=== PATIENT | female | born 1960 | race African-American/Black ===

== ENCOUNTER 2023-04-22 22:55 | Inpatient (IN) | payer MEDICARE, MEDICAID ==
[2023-04-23 00:10] LABS: #Eosinphils 0.2 10x3/uL (0.0-0.5); #Monocytes 0.6 10x3/uL (0.0-1.1); #Neutrophils 4.4 10x3/uL (1.5-8.4); %Basophils 0.4 % (0.0-2.0); %Eosinophils 1.8 % (0.0-6.0); %Lymphocytes 35.6 % (18.0-47.0); %Monocytes 7.2 % (0.0-10.0); %Neutrophils 54.3 % (40.0-75.0); Hematocrit 31.1 % (34.9-44.5); Hemoglobin 9.3 g/dL (12.0-15.5); Mean Corpuscular HGB CONC 29.9 g/dL (32.0-36.0); Mean Corpuscular Hemoglobin 26.7 pg (27.0-33.0); Mean Corpuscular Volume 89.4 fl (81.6-98.3); Mean Platelet Volume 9.7 fl (7.4-10.4); Platelet Count 462 10x3/uL (150-450); RBC Distribution Width 18.9 % (11.5-14.5); Red Blood Cell (RBC) Count 3.48 10x6/uL (3.90-5.03); White Blood Cell (WBC) Count 8.1 10x3/uL (3.5-10.5)
[2023-04-23 00:30] LABS: ALT (SGPT) Less than 7 U/L (8-55); AST (SGOT) 11 U/L (5-34); Albumin 3.2 g/dL (3.5-5.0); Alkaline Phosphatase 56 U/L (40-110); Anion Gap 16 mmol/L (10-20); BUN (Urea Nitrogen) 72 mg/dL (9.8-20.1); Bilirubin, Total 0.3 mg/dL (0.2-1.2); Calc. Creatinine Clearance 0 mL/min (70-130); Calcium 8.2 mg/dL (7.8-10.44); Chloride 120 mmol/L (98-107); Estimated GFR 20; Globulin 3.6 g/dL (2.4-3.5); Glucose 99 mg/dL (70-105); Potassium 3.7 mmol/L (3.5-5.1); Protein, Total 6.8 g/dL (6.0-8.3); Sodium 140 mmol/L (136-145)
[2023-04-23 00:34] LABS: Carbon Dioxide 8 mmol/L (22-29)
[2023-04-23 01:01] LABS: Bilirubin Neg (Negative); Blood, Urine 25 (Negative); Clarity Cloudy (Clear); Glucose, Urine (Dipstick) Normal (Negative); Ketone, Urine Negative (Negative); Leukocyte 500 (Negative); Nitrite Positive (Negative); Protein, Urine (Dipstick) 30 mg/dl (Neg-Trace); Urobilinogen Normal mg/dL (Less than 2); pH, Urine 6.5 (5.0-9.0)
[2023-04-23 01:04] LABS: Actual Bicarbonate (HCO3v) 12.7 mEq/L (22-28); Base Excess -14.5 mEq/L (-2 - +2); Chloride (VBG) 119 mmol/L (98-106); Hematocrit-VBG 30 % (36.0-47.0); Hemoglobin (Hb) 10.1 g/dL (11.7-16.0); Potassium (VBG) 3.36 mmol/L (3.70-5.30); Puncture Site Other Site; RapidComm Collect By lab; Sodium 143 mmol/L (133-146); pH (venous) 7.187 (7.32-7.43)
[2023-04-23 01:10] LABS: Bacteria/HPF 2+ HPF (None Seen); CAUTI Indications for Culture Dysuria,urgency,freq; RBC/HPF 0-3 HPF (0-3); Squamous Epithelial 0-3 HPF (0-3); WBC/HPF Greater than 50 HPF (0-3)
[2023-04-23] MEDS ORDERED: cefTRIAXone (ROCEPHIN) 1 GM VIAL ONE (02:55)
[2023-04-23] MEDS ORDERED: Dextrose 5% in Water 1,000 ML IV PRN (03:24)
[2023-04-23] MEDS ORDERED: Glucagon 1 MG/ML KIT IM PRN (03:24)
[2023-04-23] MEDS ORDERED: Dextrose 50% Abboject 50 ML SYRINGE SLOW IVP PRN (03:24)
[2023-04-23] MEDS ORDERED: Acetaminophen 325 MG TAB PO PRN (03:24)
[2023-04-23] MEDS ORDERED: Melatonin 3 MG TAB PO PRN (03:24)
[2023-04-23] MEDS ORDERED: Sodium Chloride 0.9% 1,000 ML IV SCH (03:30)
[2023-04-23 07:35] LABS: Anion Gap 15 mmol/L (10-20); BUN (Urea Nitrogen) 69 mg/dL (9.8-20.1); Calc. Creatinine Clearance 24 mL/min (70-130); Calcium 8.1 mg/dL (7.8-10.44); Carbon Dioxide 10 mmol/L (22-29); Chloride 121 mmol/L (98-107); Estimated GFR 19; Glucose 126 mg/dL (70-105); Magnesium 1.3 mg/dL (1.6-2.6); Phosphorus 4.6 mg/dL (2.3-4.7); Potassium 3.4 mmol/L (3.5-5.1); Sodium 143 mmol/L (136-145)
[2023-04-23] MEDS: Aspirin 81 mg Enteric Coated Tablet PO SCH (08:52)
[2023-04-23] MEDS: Senokot S 8.6-50 MG TAB PO SCH ×2 (08:52→21:06)
[2023-04-23] MEDS: Metoprolol Tartrate 25 MG TAB PO SCH ×2 (08:52→21:07)
[2023-04-23] MEDS ORDERED: Sodium Chloride 0.45% 1,000 ML IV SCH (09:00)
[2023-04-23] MEDS: Sodium Bicarbonate 150 MEQ in Dextrose 5% in Water 1,000 ML IV SCH (11:11)
[2023-04-23 12:07] VITALS: BMI 64.0
[2023-04-23] MEDS: HumaLOG 300 UNITS/3 ML VIAL SC PRN (21:56)
[2023-04-24] MEDS: Sodium Bicarbonate 150 MEQ in Dextrose 5% in Water 1,000 ML IV SCH (00:04)
[2023-04-24] MEDS: cefTRIAXone\\ROCEPHIN 1 GM in Sodium Chloride 0.9% 100 ML IVPB SCH (03:08)
[2023-04-24 04:30] LABS: Anion Gap 17 mmol/L (10-20); BUN (Urea Nitrogen) 62 mg/dL (9.8-20.1); Calc. Creatinine Clearance 26 mL/min (70-130); Carbon Dioxide 12 mmol/L (22-29); Chloride 115 mmol/L (98-107); Estimated GFR 22; Glucose 96 mg/dL (70-105); Potassium 2.8 mmol/L (3.5-5.1); Sodium 141 mmol/L (136-145)
[2023-04-24 04:33] LABS: #Eosinphils 0.1 10x3/uL (0.0-0.5); #Monocytes 0.9 10x3/uL (0.0-1.1); #Neutrophils 4.5 10x3/uL (1.5-8.4); %Basophils 0.4 % (0.0-2.0); %Eosinophils 1.5 % (0.0-6.0); %Monocytes 11.1 % (0.0-10.0); %Neutrophils 57.2 % (40.0-75.0); Hematocrit 26.5 % (34.9-44.5); Hemoglobin 8.2 g/dL (12.0-15.5); Mean Corpuscular HGB CONC 30.9 g/dL (32.0-36.0); Mean Corpuscular Volume 87.2 fl (81.6-98.3); Mean Platelet Volume 10.5 fl (7.4-10.4); Platelet Count 465 10x3/uL (150-450); RBC Distribution Width 18.4 % (11.5-14.5); Red Blood Cell (RBC) Count 3.04 10x6/uL (3.90-5.03); White Blood Cell (WBC) Count 7.8 10x3/uL (3.5-10.5)
[2023-04-24] MEDS ORDERED: Sodium Bicarbonate 150 MEQ in Dextrose 5% in Water 1,000 ML IV SCH (07:42)
[2023-04-24] MEDS: Aspirin 81 mg Enteric Coated Tablet PO SCH (07:57)
[2023-04-24] MEDS: Metoprolol Tartrate 25 MG TAB PO SCH ×2 (07:57→20:17)
[2023-04-24] MEDS: Senokot S 8.6-50 MG TAB PO SCH ×2 (07:57→20:17)
[2023-04-24] MEDS ORDERED: Potassium Chloride 20 MEQ TAB PO SCH (08:45)
[2023-04-24] MEDS: Sodium Bicarbonate Tab 325 MG TAB PO SCH ×3 (09:16→20:18)
[2023-04-24] MEDS: POTASSIUM CHLORIDE FS SCH ×2 (12:12→20:18)
[2023-04-24] MEDS: DEXTROSE 5% FS SCH ×2 (12:12→20:18)
[2023-04-24] MEDS: SODIUM BICARBONATE FS SCH ×2 (12:12→20:18)
[2023-04-24] MEDS: WATER FS SCH ×2 (12:12→20:18)
[2023-04-24] MEDS: HumaLOG 300 UNITS/3 ML VIAL SC PRN ×2 (17:29→20:17)
[2023-04-25] MEDS: cefTRIAXone\\ROCEPHIN 1 GM in Sodium Chloride 0.9% 100 ML IVPB SCH (03:02)
[2023-04-25 04:45] LABS: #Eosinphils 0.1 10x3/uL (0.0-0.5); #Monocytes 0.8 10x3/uL (0.0-1.1); #Neutrophils 2.7 10x3/uL (1.5-8.4); %Basophils 0.4 % (0.0-2.0); %Eosinophils 1.5 % (0.0-6.0); %Lymphocytes 46.6 % (18.0-47.0); %Monocytes 11.2 % (0.0-10.0); %Neutrophils 39.4 % (40.0-75.0); Hematocrit 21.7 % (34.9-44.5); Hemoglobin 6.9 g/dL (12.0-15.5); Mean Corpuscular HGB CONC 31.8 g/dL (32.0-36.0); Mean Corpuscular Hemoglobin 27.3 pg (27.0-33.0); Mean Corpuscular Volume 85.8 fl (81.6-98.3); Mean Platelet Volume 10.4 fl (7.4-10.4); Platelet Count 387 10x3/uL (150-450); RBC Distribution Width 17.9 % (11.5-14.5); Red Blood Cell (RBC) Count 2.53 10x6/uL (3.90-5.03); White Blood Cell (WBC) Count 6.9 10x3/uL (3.5-10.5)
[2023-04-25 04:50] LABS: Anion Gap 15 mmol/L (10-20); BUN (Urea Nitrogen) 52 mg/dL (9.8-20.1); Calc. Creatinine Clearance 30 mL/min (70-130); Calcium 7.4 mg/dL (7.8-10.44); Carbon Dioxide 21 mmol/L (22-29); Chloride 109 mmol/L (98-107); Estimated GFR 26; Glucose 88 mg/dL (70-105); Sodium 142 mmol/L (136-145)
[2023-04-25 05:04] LABS: Potassium 2.5 mmol/L (3.5-5.1)
[2023-04-25] MEDS ORDERED: Potassium Chloride 20 MEQ TAB PO SCH (05:30)
[2023-04-25] MEDS: SODIUM BICARBONATE FS SCH ×2 (05:42→17:21)
[2023-04-25] MEDS: WATER FS SCH ×2 (05:42→17:21)
[2023-04-25] MEDS: POTASSIUM CHLORIDE FS SCH ×2 (05:42→17:21)
[2023-04-25] MEDS: DEXTROSE 5% FS SCH ×2 (05:42→17:21)
[2023-04-25] MEDS: Sodium Bicarbonate Tab 325 MG TAB PO SCH ×3 (09:01→22:18)
[2023-04-25] MEDS: Metoprolol Tartrate 25 MG TAB PO SCH ×2 (09:02→22:18)
[2023-04-25] MEDS: Senokot S 8.6-50 MG TAB PO SCH ×2 (09:05→22:20)
[2023-04-25] MEDS: Aspirin 81 mg Enteric Coated Tablet PO SCH (09:05)
[2023-04-25 09:47] LABS: Iron 21 ug/dL (50-170); Iron Binding Capacity, Total 166 mcg/dL (265-497)
[2023-04-25] MEDS ORDERED: Potassium Bicarbonate/Cit Ac 20 MEQ TAB PO SCH (13:00)
[2023-04-25] MEDS: HumaLOG 300 UNITS/3 ML VIAL SC PRN ×2 (17:22→22:22)
[2023-04-25 18:39] LABS: Anion Gap 16 mmol/L (10-20); BUN (Urea Nitrogen) 55 mg/dL (9.8-20.1); Calc. Creatinine Clearance 29 mL/min (70-130); Calcium 7.4 mg/dL (7.8-10.44); Carbon Dioxide 24 mmol/L (22-29); Chloride 107 mmol/L (98-107); Estimated GFR 25; Glucose 267 mg/dL (70-105); Potassium 3.8 mmol/L (3.5-5.1); Sodium 143 mmol/L (136-145)
[2023-04-26] MEDS: cefTRIAXone\\ROCEPHIN 1 GM in Sodium Chloride 0.9% 100 ML IVPB SCH (03:28)
[2023-04-26] MEDS: SODIUM BICARBONATE FS SCH (03:28)
[2023-04-26] MEDS: DEXTROSE 5% FS SCH (03:28)
[2023-04-26] MEDS: POTASSIUM CHLORIDE FS SCH (03:28)
[2023-04-26] MEDS: WATER FS SCH (03:28)
[2023-04-26 03:48] LABS: #Eosinphils 0.1 10x3/uL (0.0-0.5); #Neutrophils 3.5 10x3/uL (1.5-8.4); %Basophils 0.4 % (0.0-2.0); %Eosinophils 1.2 % (0.0-6.0); %Monocytes 12.7 % (0.0-10.0); %Neutrophils 44.8 % (40.0-75.0); Hematocrit 25.8 % (34.9-44.5); Hemoglobin 8.4 g/dL (12.0-15.5); Mean Corpuscular HGB CONC 32.6 g/dL (32.0-36.0); Mean Corpuscular Hemoglobin 27.6 pg (27.0-33.0); Mean Corpuscular Volume 84.9 fl (81.6-98.3); Mean Platelet Volume 10.1 fl (7.4-10.4); Platelet Count 357 10x3/uL (150-450); RBC Distribution Width 17.4 % (11.5-14.5); Red Blood Cell (RBC) Count 3.04 10x6/uL (3.90-5.03); White Blood Cell (WBC) Count 7.7 10x3/uL (3.5-10.5)
[2023-04-26 04:25] LABS: Anion Gap 14 mmol/L (10-20); BUN (Urea Nitrogen) 53 mg/dL (9.8-20.1); Calc. Creatinine Clearance 33 mL/min (70-130); Calcium 7.2 mg/dL (7.8-10.44); Carbon Dioxide 28 mmol/L (22-29); Chloride 105 mmol/L (98-107); Estimated GFR 28; Glucose 163 mg/dL (70-105); Potassium 3.2 mmol/L (3.5-5.1); Sodium 144 mmol/L (136-145)
[2023-04-26] MEDS: Ascorbic Acid 500 mg Chewable Tablet PO SCH (09:05)
[2023-04-26] MEDS: Senokot S 8.6-50 MG TAB PO SCH ×2 (09:05→20:11)
[2023-04-26] MEDS: Sodium Bicarbonate Tab 325 MG TAB PO SCH ×3 (09:05→20:11)
[2023-04-26] MEDS: Folic Acid 1 MG TAB PO SCH (09:05)
[2023-04-26] MEDS: Metoprolol Tartrate 25 MG TAB PO SCH ×2 (09:06→20:10)
[2023-04-26] MEDS: Aspirin 81 mg Enteric Coated Tablet PO SCH (09:06)
[2023-04-26] MEDS ORDERED: Potassium Bicarbonate/Cit Ac 20 MEQ TAB PO SCH (12:45)
[2023-04-26] MEDS: Latanoprost 0.005% Ophth Soln 2.5 ml Bottle EA EYE SCH (13:16)
[2023-04-27 04:25] LABS: #Eosinphils 0.1 10x3/uL (0.0-0.5); #Monocytes 0.8 10x3/uL (0.0-1.1); #Neutrophils 3.7 10x3/uL (1.5-8.4); %Basophils 0.3 % (0.0-2.0); %Eosinophils 1.6 % (0.0-6.0); %Lymphocytes 37.9 % (18.0-47.0); %Monocytes 10.8 % (0.0-10.0); %Neutrophils 48.6 % (40.0-75.0); Hematocrit 28.1 % (34.9-44.5); Hemoglobin 8.9 g/dL (12.0-15.5); Mean Corpuscular HGB CONC 31.7 g/dL (32.0-36.0); Mean Corpuscular Hemoglobin 27.7 pg (27.0-33.0); Mean Corpuscular Volume 87.5 fl (81.6-98.3); Mean Platelet Volume 10.3 fl (7.4-10.4); Platelet Count 387 10x3/uL (150-450); RBC Distribution Width 17.3 % (11.5-14.5); Red Blood Cell (RBC) Count 3.21 10x6/uL (3.90-5.03); White Blood Cell (WBC) Count 7.5 10x3/uL (3.5-10.5)
[2023-04-27 04:39] LABS: Anion Gap 14 mmol/L (10-20); BUN (Urea Nitrogen) 45 mg/dL (9.8-20.1); Calc. Creatinine Clearance 40 mL/min (70-130); Calcium 7.2 mg/dL (7.8-10.44); Carbon Dioxide 27 mmol/L (22-29); Chloride 103 mmol/L (98-107); Estimated GFR 36; Glucose 85 mg/dL (70-105); Potassium 3.3 mmol/L (3.5-5.1); Sodium 141 mmol/L (136-145)
[2023-04-27] MEDS: Senokot S 8.6-50 MG TAB PO SCH ×2 (10:00→21:31)
[2023-04-27] MEDS: Sodium Bicarbonate Tab 325 MG TAB PO SCH ×3 (10:04→21:30)
[2023-04-27] MEDS: Latanoprost 0.005% Ophth Soln 2.5 ml Bottle EA EYE SCH (10:05)
[2023-04-27] MEDS: Ascorbic Acid 500 mg Chewable Tablet PO SCH (10:06)
[2023-04-27] MEDS: Aspirin 81 mg Enteric Coated Tablet PO SCH (10:07)
[2023-04-27] MEDS: Metoprolol Tartrate 25 MG TAB PO SCH ×2 (10:07→21:30)
[2023-04-27] MEDS: Folic Acid 1 MG TAB PO SCH (10:07)
[2023-04-27] MEDS ORDERED: Potassium Chloride 20 MEQ TAB PO SCH (11:00)
[2023-04-27] MEDS ORDERED: Magnesium Oxide 400 MG TAB PO SCH (11:00)
[2023-04-28 04:19] LABS: Anion Gap 15 mmol/L (10-20); BUN (Urea Nitrogen) 37 mg/dL (9.8-20.1); Calc. Creatinine Clearance 41 mL/min (70-130); Calcium 7.1 mg/dL (7.8-10.44); Carbon Dioxide 25 mmol/L (22-29); Chloride 106 mmol/L (98-107); Estimated GFR 36; Glucose 78 mg/dL (70-105); Potassium 3.2 mmol/L (3.5-5.1); Sodium 143 mmol/L (136-145)
[2023-04-28 04:26] LABS: #Eosinphils 0.1 10x3/uL (0.0-0.5); #Monocytes 0.6 10x3/uL (0.0-1.1); #Neutrophils 2.5 10x3/uL (1.5-8.4); %Basophils 0.7 % (0.0-2.0); %Eosinophils 1.8 % (0.0-6.0); %Lymphocytes 40.7 % (18.0-47.0); %Monocytes 11.6 % (0.0-10.0); %Neutrophils 44.5 % (40.0-75.0); Hematocrit 28.4 % (34.9-44.5); Hemoglobin 8.8 g/dL (12.0-15.5); Mean Corpuscular Hemoglobin 27.3 pg (27.0-33.0); Mean Corpuscular Volume 88.2 fl (81.6-98.3); Mean Platelet Volume 10.1 fl (7.4-10.4); Platelet Count 379 10x3/uL (150-450); RBC Distribution Width 17.1 % (11.5-14.5); Red Blood Cell (RBC) Count 3.22 10x6/uL (3.90-5.03); White Blood Cell (WBC) Count 5.5 10x3/uL (3.5-10.5)
[2023-04-28] MEDS: Potassium Chloride 20 MEQ TAB PO SCH (08:44)
[2023-04-28] MEDS: Folic Acid 1 MG TAB PO SCH (08:50)
[2023-04-28] MEDS: Sodium Bicarbonate Tab 325 MG TAB PO SCH ×3 (08:51→21:29)
[2023-04-28] MEDS: Aspirin 81 mg Enteric Coated Tablet PO SCH (08:51)
[2023-04-28] MEDS: Senokot S 8.6-50 MG TAB PO SCH ×2 (08:51→23:53)
[2023-04-28] MEDS: Ascorbic Acid 500 mg Chewable Tablet PO SCH (08:51)
[2023-04-28] MEDS: Magnesium Oxide 400 MG TAB PO SCH (08:51)
[2023-04-28] MEDS: Escitalopram Oxalate 10 mg Tablet PO SCH (08:52)
[2023-04-28] MEDS: Metoprolol Tartrate 25 MG TAB PO SCH ×2 (08:52→21:30)
[2023-04-28] MEDS: Latanoprost 0.005% Ophth Soln 2.5 ml Bottle EA EYE SCH (08:52)
[2023-04-29] MEDS ORDERED: hydrALAZINE 20 MG/ML VIAL SLOW IVP PRN (07:45)
[2023-04-29 08:16] LABS: #Eosinphils 0.1 10x3/uL (0.0-0.5); #Monocytes 0.7 10x3/uL (0.0-1.1); #Neutrophils 2.7 10x3/uL (1.5-8.4); %Basophils 0.6 % (0.0-2.0); %Eosinophils 1.5 % (0.0-6.0); %Lymphocytes 33.1 % (18.0-47.0); %Neutrophils 50.4 % (40.0-75.0); Hematocrit 28.5 % (34.9-44.5); Hemoglobin 8.7 g/dL (12.0-15.5); Mean Corpuscular HGB CONC 30.5 g/dL (32.0-36.0); Mean Corpuscular Hemoglobin 26.9 pg (27.0-33.0); Mean Corpuscular Volume 88.2 fl (81.6-98.3); Mean Platelet Volume 9.2 fl (7.4-10.4); Platelet Count 365 10x3/uL (150-450); RBC Distribution Width 16.8 % (11.5-14.5); Red Blood Cell (RBC) Count 3.23 10x6/uL (3.90-5.03); White Blood Cell (WBC) Count 5.3 10x3/uL (3.5-10.5)
[2023-04-29 08:26] LABS: Anion Gap 14 mmol/L (10-20); BUN (Urea Nitrogen) 35 mg/dL (9.8-20.1); Calc. Creatinine Clearance 44 mL/min (70-130); Calcium 7.2 mg/dL (7.8-10.44); Carbon Dioxide 22 mmol/L (22-29); Chloride 111 mmol/L (98-107); Estimated GFR 40; Glucose 114 mg/dL (70-105); Potassium 3.1 mmol/L (3.5-5.1); Sodium 144 mmol/L (136-145)
[2023-04-29] MEDS ORDERED: Amlodipine 10 MG TAB PO SCH (09:00)
[2023-04-29] MEDS: Folic Acid 1 MG TAB PO SCH (09:14)
[2023-04-29] MEDS: Aspirin 81 mg Enteric Coated Tablet PO SCH (09:14)
[2023-04-29] MEDS: Magnesium Oxide 400 MG TAB PO SCH (09:15)
[2023-04-29] MEDS: Escitalopram Oxalate 10 mg Tablet PO SCH (09:15)
[2023-04-29] MEDS: Metoprolol Tartrate 25 MG TAB PO SCH (09:15)
[2023-04-29] MEDS: Ascorbic Acid 500 mg Chewable Tablet PO SCH (09:15)
[2023-04-29] MEDS: Potassium Chloride 20 MEQ TAB PO SCH (09:15)
[2023-04-29] MEDS: Sodium Bicarbonate Tab 325 MG TAB PO SCH (09:15)
[2023-04-29] MEDS: Latanoprost 0.005% Ophth Soln 2.5 ml Bottle EA EYE SCH (09:16)
[2023-04-29] MEDS: Senokot S 8.6-50 MG TAB PO SCH (09:16)
[2023-04-29] MEDS ORDERED: Potassium Chloride 20 MEQ TAB PO SCH (12:00)
[2023-04-29 14:31] VITALS: BP 145/75; TEMP 98.3
== END 2023-04-29 14:44 | DRG 682 ==
LOC: CSHERS 22:55 → CSHTELE 04-23 03:19
PROVIDERS: ADMIT Family Medicine; ATTEND Internal Medicine
PROC: 30233N1 Transfusion of Nonautologous Red Blood Cells into Peripheral Vein, Percutaneous Approach (ICD-10-PCS; principal; 2023-04-25)
DX: N17.9 Acute kidney failure, unspecified (principal); G93.41 Metabolic encephalopathy; L89.224 Pressure ulcer of left hip, stage 4; N39.0 Urinary tract infection, site not specified; E87.20 Acidosis, unspecified; I69.354 Hemiplegia and hemiparesis following cerebral infarction affecting left non-dominant side; K21.9 Gastro-esophageal reflux disease without esophagitis; E78.00 Pure hypercholesterolemia, unspecified; I10 Essential (primary) hypertension; F32.A Depression, unspecified; F20.9 Schizophrenia, unspecified; E11.51 Type 2 diabetes mellitus with diabetic peripheral angiopathy without gangrene; I25.10 Atherosclerotic heart disease of native coronary artery without angina pectoris; L89.152 Pressure ulcer of sacral region, stage 2; K59.00 Constipation, unspecified; D64.9 Anemia, unspecified; E87.6 Hypokalemia; Z66 Do not resuscitate; K80.20 Calculus of gallbladder without cholecystitis without obstruction; E83.42 Hypomagnesemia; Z95.5 Presence of coronary angioplasty implant and graft; Z89.511 Acquired absence of right leg below knee; Z89.612 Acquired absence of left leg above knee; Z98.890 Other specified postprocedural states; Z89.611 Acquired absence of right leg above knee; Z90.710 Acquired absence of both cervix and uterus; Z98.51 Tubal ligation status
CPT/HCPCS: 36415; 36416; 36430; 74176; 80048; 81001; 82306; 82728; 82805; 83540; 83550; 83735; 84100; 85025; 86850; 86900; 86901; 87086; 93005; 93010; 96374; 97139; J0696; J1650; J1815; J3480; J3490; J7050; J7070; P9016